=== PATIENT | male | born 1960 | race Hispanic/Latino ===

== ENCOUNTER 2024-11-23 06:51 | Day surgery (SDC) | payer OTHER ==
[~2024-11-23] VITALS: Ht 172.7 cm; Wt 84.4 kg
[2024-11-23] VITALS (9 sets, daily range): BP systolic 106–126; BP diastolic 62–84; PULSE 59–68; RESP 12–18; TEMP 97–98
[2024-11-23] MEDS ORDERED: IBUP-2070 PO (09:33)
[2024-11-23] MEDS ORDERED: TIZA4CAP8 PO (09:33)
[2024-11-23] MEDS ORDERED: OMEP40CA21 PO (09:33)
[2024-11-23] MEDS ORDERED: AMOX500C2 PO (09:33)
[2024-11-23] MEDS ORDERED: SUCR1TAB2 PO (09:33)
[2024-11-23] MEDS ORDERED: METR-361 PO (09:33)
[2024-11-23] MEDS ORDERED: ROSUVASTATIN PO (09:33)
[2024-11-23] MEDS ORDERED: TETR-68 PO (09:33)
[2024-11-23] MEDS: 0.9%NACL 1000ML 1,000 ML IV ONE (09:34)
[2024-11-23] MEDS ORDERED: proPOFol 10 MG/ML 20ML VIAL IV ONE (10:58)
== END 2024-11-23 12:10 | disposition home or self-care (01) ==
LOC: ENDO 06:51 → DAH 06:51 → ENDO 12:10
PROVIDERS: ATTEND Internal Medicine Gastroenterology
DX: R93.3 Abnormal findings on diagnostic imaging of other parts of digestive tract (principal); K86.9 Disease of pancreas, unspecified; K31.89 Other diseases of stomach and duodenum; K57.50 Diverticulosis of both small and large intestine without perforation or abscess without bleeding; B96.81 Helicobacter pylori [H. pylori] as the cause of diseases classified elsewhere; D12.6 Benign neoplasm of colon, unspecified; K21.00 Gastro-esophageal reflux disease with esophagitis, without bleeding; K22.70 Barrett's esophagus without dysplasia; E78.00 Pure hypercholesterolemia, unspecified; I25.10 Atherosclerotic heart disease of native coronary artery without angina pectoris; F10.90 Alcohol use, unspecified, uncomplicated; F17.200 Nicotine dependence, unspecified, uncomplicated; E66.9 Obesity, unspecified; Z68.28 Body mass index [BMI] 28.0-28.9, adult; Z79.2 Long term (current) use of antibiotics; Z79.899 Other long term (current) drug therapy
CPT/HCPCS: 43237; J7030 ×2; J2704; A4620; A4215; A4223; A7002; A4222; A4221; A4663; A4606; J3490